=== PATIENT | male | born 1960 | race Caucasian/White ===

== ENCOUNTER 2018-05-06 10:12 | Day surgery (SDC) | payer OTHER ==
[2018-05-06] MEDS ORDERED: MIDAZOLAM 1 MG/ML 2 ML INJ (11:20)
[2018-05-06] MEDS ORDERED: FENTAnyl 50 MCG/ML VIAL (11:20)
[2018-05-06] MEDS ORDERED: PROPOFOL 0 ML (11:20)
[2018-05-06] MEDS ORDERED: PROPOFOL 20 ML (12:22)
== END 2018-05-06 12:32 | disposition home or self-care (01) ==
LOC: GIL 10:12
DX: Z12.11 Encounter for screening for malignant neoplasm of colon (principal); K57.90 Diverticulosis of intestine, part unspecified, without perforation or abscess without bleeding; K64.8 Other hemorrhoids; E11.9 Type 2 diabetes mellitus without complications
CPT/HCPCS: 45378; 82962